=== PATIENT | male | born 1950 | race Caucasian/White ===

== ENCOUNTER 2023-05-23 12:06 | Outpatient (RCR) | payer OTHER, SELFPAY | END 2023-05-23 23:59 | disposition home or self-care (01) | LOC: RPT 12:06 | PROVIDERS: ATTENDING PHYSICIAN Specialist; FAMILY PHYSICIAN Internal Medicine | DX: C61 Malignant neoplasm of prostate (principal); Z73.6 Limitation of activities due to disability; R27.8 Other lack of coordination; Z98.890 Other specified postprocedural states; Z90.79 Acquired absence of other genital organ(s) | CPT/HCPCS: 97162; 97530 ==

== ENCOUNTER 2023-05-31 06:13 | Inpatient (IN) | payer OTHER, SELFPAY ==
[2023-05-19 08:50] LABS: Hematocrit 47.8 % (39.0-52.0); Hemoglobin 16.2 g/dL (13.0-18.0); Mean Corp Hgb Conc. 33.9 g/dL (33.0-37.0); Mean Corpuscular Hgb 30.7 pg (27.0-31.0); Mean Corpuscular Volume 90.7 fL (80.0-94.0); Mean Platelet Volume 10.8 fL (7.4-10.4); Platelet Count 215 10^3/uL (130-400); Red Blood Cell Count 5.27 10^6/uL (4.70-6.10); Red Cell Dist. Width 12.4 % (11.5-14.5); White Blood Cell Count 6.7 10^3/uL (4.8-10.8)
[2023-05-19 08:52] LABS: Urine Albumin Negative (Neg - Trace); Urine Bilirubin Negative (Negative); Urine Character Clear (Clear); Urine Color Yellow; Urine Glucose Negative (Negative); Urine Ketone Negative (Negative); Urine Leukocyte Trace (Negative); Urine Nitrite Negative (Negative); Urine Occult Blood Trace (Negative); Urine Specific Gravity 1.015 (<1.030); Urine Urobilinogen Negative (Neg - 1+)
[2023-05-19 09:10] LABS: INR 1.05; PT 13.7 Sec (11.4-14.6)
[2023-05-19 09:11] LABS: APTT 31.2 Sec (23.4-35.0)
[2023-05-19 09:19] LABS: Urine Red Blood Cell 0-2 /HPF (0-2)
[2023-05-19 10:24] LABS: Blood Urea Nitrogen 17 mg/dl (9-20); Calcium 9.4 mg/dl (8.4-10.2); Carbon Dioxide 28 mmol/L (22-30); Chloride 103 mmol/L (98-107); Glucose 92 mg/dl (70-99); Potassium 4.4 mmol/L (3.5-5.1); Sodium 139 mmol/L (135-145); eGFR > 60.00
[2023-05-19 13:46] VITALS: BMI 24.3
[2023-05-31] VITALS (18 sets, daily range): BP systolic 98–124; BP diastolic 59–86; BMI 24.3
[2023-05-31] MEDS: NORMOSOL-R 1000 IV ×3 (06:40→20:45)
[2023-05-31] MEDS: NEBCIN 480 MG/100 ML ENEMA 1 BOTTLE RECTAL (06:51)
--- NOTE | 2023-05-31 09:31 | W.IMMPOSTOP ---
Surgical Immed Post Op Note
-
Primary Surgeon: Trish
Assisting Surgeon: Hema
Pre-op Diagnosis: Prostate cancer
Post-op Diagnosis: Same
Procedure Performed: Radical perineal prostatectomy, bladder neck tubularization
Anesthesia Type: GET
Specimen / Cultures: prostate gland with adnexa, bladder neck and urethral margins for frozen section
Estimated Blood Loss: 125 ml
Complications: None
[2023-05-31 10:04] LABS: Hematocrit 41.4 % (39.0-52.0); Hemoglobin 14.6 g/dL (13.0-18.0)
[2023-05-31] MEDS: DETROL LA 4 MG PO (10:17)
[2023-05-31 10:18] LABS: Blood Urea Nitrogen 14 mg/dl (9-20); Calcium 8.1 mg/dl (8.4-10.2); Carbon Dioxide 26 mmol/L (22-30); Chloride 102 mmol/L (98-107); Estimated Creatinine Clearance 80 ml/min; Glucose 109 mg/dl (70-99); Potassium 4.5 mmol/L (3.5-5.1); Sodium 133 mmol/L (135-145); eGFR > 60.00
[2023-05-31] MEDS: TORADOL 15 MG IV ×3 (10:24→21:11)
[2023-05-31] MEDS: DILAUDID 0.25 MG IV ×2 (10:46→11:52)
[2023-05-31] MEDS: COLACE PO (14:14)
--- NOTE | 2023-05-31 15:17 | PTCARENOTE ---
Received patient from PACU around 1315 via bed in stable condition. Urinary catheter in place draining greenish blue urine. ABD dressing to perineum in place. SCDs and TEDS in place. Patient oriented to room. Call rodrigues in place.
[2023-05-31] MEDS: COLACE 100 MG PO (16:01)
[2023-05-31] MEDS: VITAMIN D3 (cholecalciferol) 50 MCG PO (18:09)
[2023-05-31] MEDS: TYLENOL 650 MG PO (20:45)
[2023-05-31] MEDS: POLYSPORIN/DOUBLE ANTIBIOTIC 1 APPLIC TOPICAL (20:46)
[2023-05-31] MEDS: ZESTRIL 10 MG PO (21:11)
[2023-05-31] MEDS: PRAVACHOL 40 MG PO (21:11)
[2023-06-01 03:25] VITALS: BP 120/74
[2023-06-01] MEDS: TORADOL 15 MG IV ×3 (03:38→17:07)
[2023-06-01 05:07] LABS: Hematocrit 38.7 % (39.0-52.0); Hemoglobin 13.4 g/dL (13.0-18.0); Mean Corp Hgb Conc. 34.6 g/dL (33.0-37.0); Mean Corpuscular Hgb 30.5 pg (27.0-31.0); Mean Platelet Volume 10.8 fL (7.4-10.4); Platelet Count 194 10^3/uL (130-400); Red Cell Dist. Width 12.3 % (11.5-14.5); White Blood Cell Count 13.7 10^3/uL (4.8-10.8)
[2023-06-01 05:45] LABS: Blood Urea Nitrogen 11 mg/dl (9-20); Calcium 8.4 mg/dl (8.4-10.2); Carbon Dioxide 23 mmol/L (22-30); Chloride 101 mmol/L (98-107); Estimated Creatinine Clearance 106 ml/min; Glucose 96 mg/dl (70-99); Potassium 4.6 mmol/L (3.5-5.1); Sodium 131 mmol/L (135-145); eGFR > 60.00
[2023-06-01] MEDS: NORMOSOL-R 1000 IV (06:12)
[2023-06-01 06:27] LABS: Hepatitis C Antibody Negative (Negative)
[2023-06-01 07:45] VITALS: BP 116/62
[2023-06-01] MEDS: SPIRIVA RESPIMAT 2.5 MCG 2 PUFF INH (08:00)
--- NOTE | 2023-06-01 08:33 | W.PN.UPDATE ---
Update Note
Progress Note Update
Stable 1 day s/p radical perineal prostatectomy
Labs good
Afebrile
Tolerating regular diet
Dressing minimally stained as expected
Bagley draining clear urine
---
Plan:
Dressing down and drain out tomorrow
[2023-06-01] MEDS: COLACE 100 MG PO ×3 (09:27→17:07)
[2023-06-01] MEDS: LEVAQUIN 100 IV (09:28)
[2023-06-01] MEDS: POLYSPORIN/DOUBLE ANTIBIOTIC 1 APPLIC TOPICAL ×2 (09:28→20:51)
[2023-06-01] MEDS: ATIVAN 0.5 MG PO (09:28)
[2023-06-01 11:39] VITALS: BP 126/71
--- NOTE | 2023-06-01 12:30 | CM ---
Reviewed the chart notes and spoke with the patient and his at the bedside. The patient resides in a three story home with two steps to enter. The patient reports no DME/VN/SNF in the past. The patient confirmed his pharmacy of choice is
the [facility] [address]. Discussed with the patient area VN agencies. Patient selected VN. Referral sent. CM continues to be available to patient/family and is monitoring medical plan for needs at discharge.
Plan: Discharge to home with VN services when medically stable.
[2023-06-01 14:55] VITALS: BP 131/83
--- NOTE | 2023-06-01 15:25 | VNURNOTE ---
Home Health Liaison met with patient and spouse Aguilar at 1430 to discuss [facility] nurse visits, schedule and homebound status. Patient is agreeable and understands that visits at home will be 2-3 x per week to assess and teach medical management and
catheter care.
[facility] brochure provided with contact information. Patient is aware that [facility] will contact him for start of care in 1-2 days after discharge from .
[facility] referral completed in [facility].
[2023-06-01] MEDS: NORMOSOL-R IV (16:37)
[2023-06-01] MEDS: FLUSH (NSS) 1 FLUSH IV (21:22)
[2023-06-01] MEDS: PRAVACHOL PO (21:37)
[2023-06-01] MEDS: ZESTRIL PO (21:39)
[2023-06-01 23:07] VITALS: BP 133/84
[2023-06-02] MEDS: COLACE PO ×2 (07:35→12:43)
[2023-06-02] MEDS: LEVAQUIN 100 IV (07:37)
[2023-06-02] MEDS: ATIVAN 0.5 MG PO (07:37)
[2023-06-02] MEDS: POLYSPORIN/DOUBLE ANTIBIOTIC 1 APPLIC TOPICAL (07:38)
[2023-06-02] MEDS: PROTONIX 40 MG PO (07:38)
[2023-06-02 08:00] VITALS: BP 113/74
[2023-06-02] MEDS: SPIRIVA RESPIMAT 2.5 MCG 2 PUFF INH (08:05)
--- NOTE | 2023-06-02 09:13 | W.DS.TRANS ---
DC Summary - Contract Attorney
-
Discharge Instructions:
Discharge Diagnosis/Procedures prostate cancer
Diet As tolerated
Activity No strenuous activity
Additional Activity for 10 days
Driving Restrictions No driving for 1 week
Bathing Restrictions shower off after each bowel movement the next
five
Wound Care VN to remove Bagley around 10 AM 08/13/23
Instructions:
Stand-Alone Forms:
Changes to Home Medications: No
Discharge Medications:
DC Medications w/original date entered in [facility]
albuterol sulfate 90 mcg/actuation aerosol inhaler (ProAir HFA) 1 puff inhalation Q4HPRN PRN shortness of breath #8.5 grams 11/20/22
acetaminophen 500 mg tablet 500 mg PO Q6H PRN pain 05/27/23
calcium carbonate 400 mg calcium (1,000 mg) chewable tablet (Tums Ultra) 400 mg PO PRN PRN reflux 05/27/23
cholecalciferol (vitamin D3) 50 mcg (2,000 unit) capsule (Vitamin D3) 50 mcg PO .EVERY OTHER EVENING Supplement 05/27/23
coenzyme Q10 100 mg capsule (Co Q-10) 100 mg PO HS Supplement 05/27/23
esomeprazole magnesium 20 mg capsule,delayed release 20 mg PO .EVERY OTHER DAY Gastrointestinal Issue 05/27/23
famotidine 10 mg tablet (Pepcid AC) 10 mg PO PRN PRN reflux 05/27/23
finasteride 5 mg tablet 5 mg PO DAILY Urinary Issue 05/27/23
ibuprofen 200 mg capsule (Motrin IB) 200 mg PO Q6H PRN pain 05/27/23
lisinopril 10 mg tablet 10 mg PO HS Blood Pressure 05/27/23
loratadine 10 mg capsule (Claritin Liqui-Gel) 10 mg PO DAILY PRN allergies 05/27/23
lorazepam 0.5 mg tablet 0.5 mg PO DAILY anxiety 05/27/23
bybomftauxhl-rkmctoqr-kdnejx tablet (Multivitamin 50 Plus tablet) 1 tab PO DAILY Supplement 05/27/23
pravastatin 40 mg tablet 40 mg PO HS High Cholesterol 05/27/23
tiotropium bromide 2.5 mcg/actuation mist for inhalation (Spiriva Respimat) 2 puff inhalation DAILY Lung/Breathing Issues 05/27/23
vitamin D3 250 mcg (10,000 unit)-vitamin K2 45 mcg capsule 1 cap PO .EVERY OTHER EVENING Supplement 05/27/23
Home Medication Changes
Pending Results: No
--- NOTE | 2023-06-02 09:35 | CM ---
Reviewed the chart notes and spoke with the patient at the bedside. IMM signed and placed on the chart. The patient's spouse will provide transportation home today. CM continues to be available to patient/family and is monitoring medical plan for
needs at discharge.
Plan: Discharge to home with [facility] BEDS AT THE [facility] services.
== END 2023-06-02 13:55 | disposition home health service (06) | DRG 708 ==
LOC: 2 SOUTH 06:13
PROVIDERS: ADMITTING PHYSICIAN Specialist; FAMILY PHYSICIAN Internal Medicine
PROC: 0VT30ZZ Resection of Bilateral Seminal Vesicles, Open Approach (ICD-10-PCS; 2023-05-31)
PROC: 0VT00ZZ Resection of Prostate, Open Approach (ICD-10-PCS; 2023-05-31)
PROC: 0TUD07Z Supplement Urethra with Autologous Tissue Substitute, Open Approach (ICD-10-PCS; 2023-05-31)
DX: C61 Malignant neoplasm of prostate (principal); Z79.82 Long term (current) use of aspirin; I10 Essential (primary) hypertension; J44.9 Chronic obstructive pulmonary disease, unspecified; E78.00 Pure hypercholesterolemia, unspecified; M81.0 Age-related osteoporosis without current pathological fracture; N40.0 Benign prostatic hyperplasia without lower urinary tract symptoms
CPT/HCPCS: 88305; 88309; 88332; 36415; 80048; 81003; 81015; 85014; 85018; 85027; 85610; 85730; 86803; 86850; 86900; 86901; 88331; 93005; 94640; A4648

== ENCOUNTER 2023-06-19 12:17 | Emergency (ER) | payer OTHER, SELFPAY ==
[2023-06-19 12:20] VITALS: BP 142/95
--- NOTE | 2023-06-19 13:09 | ED.GENMED ---
Addendum entered and electronically signed by Ayo Newton PA-C 06/22/23 07:22:
Wound culture demonstrates Enterobacter species. Sensitivities show effectiveness with Bactrim. No change needed
Original Note:
History of Present Illness
General
Chief Complaint: Skin Problem
Time Seen by Provider: 06/19/23 12:49
Travel History
Have you had any contact with someone who has COVID-19?: No
Do you have any symptoms of coronavirus? Fever > 100 degrees, chills, cough, shortness of breath, sore throat, loss of taste or smell, muscle aches, or headache?: No
History of Present Illness
History of Present Illness:
72-year-old male with history of prostate cancer status post prostatectomy on May 30 presents to the emergency department with concern for discharge from the perineal incision site. States he has had minor amount of discharge for the past several
days, has visiting nurse has been monitoring it closely. This morning he noted foul-smelling discharge on his underwear pad. He denies any significant pain to the area. No fevers, chills, sweats. Denies any dysuria or urinary retention symptoms.
He also notes a mildly itchy rash to bilateral lower legs that began 2 days ago, applied topical betamethasone without relief, right leg is worse than the left
Past History
Past History
ED Past Medical History: Asthma, COPD and HTN
ED Past Surgical History: Urological
Social History
Tobacco: Non-smoker
Drug: None
Personal: Partner
Living: with family
Employment: Retired
Family History
Family History: Unable to obtain
Review of Systems
Review of Systems
Allergies reviewed?: Yes
All Other Systems: ROS reviewed and negative except as documented in HPI and ROS
Phy Exam
Physical Exam
Physical Exam:
GEN: Well appearing, NAD, WDWN
HEENT: Oral mucosa moist, no scleral icterus
Cardiac: Regular rate
Lung: No respiratory distress, no tachypnea
: Perineal incision site is well-approximated, the right anterior aspect of the wound has mild dehiscence with central granulation tissue, no malodorous discharge, no other significant erythema or induration is noted
MSK: No gross deformity or injuries
Skin: Good color, no pallor or jaundice. Petechial/scaly rash circumferentially to R lower leg, scant L lower leg lesions. No lesions to palms or soles
Neuro: AO x3, moves all extremities freely
Psych: Calm, cooperative
Course
Orders/Labs/Results
Orders:
Orders
06/19/23 13:18
Complete Blood Count/With Diff Urgent
Comprehensive Metabolic Panel Urgent
Prothrombin Time Urgent
Wound Culture [Wound/Abscess/Other Culture] Urgent
KRZYSZTOF Source: Groin
Specimen Description: Right
Date Specimen was Collected: 06/19/23
Time Specimen was Collected: 13:11
Comment: R anterior perineal incision site
Abnormal Lab Results
06/19/23
13:18
RBC 4.57 L 10^6/uL
(4.70-6.10)
Absolute Monos (auto) 0.7 H 10^3/uL
(0.1-0.6)
Monocytes % 10.5 H %
(1.7-9.3)
Total Protein 6.1 L g/dl
(6.3-8.2)
06/19/23 13:18
06/19/23 13:18
Vital Signs
Initial and Last Documented VS:
Initial Vital Signs
Temp Pulse Resp BP Pulse Ox
98.9 F 101 18 142/95 96
06/19/23 12:20 06/19/23 12:20 06/19/23 12:20 06/19/23 12:20 06/19/23 12:20
Last Documented Vital Signs
Temp Pulse Resp BP Pulse Ox
98.9 F 101 18 125/76 99
06/19/23 12:20 06/19/23 12:20 06/19/23 12:20 06/19/23 13:23 06/19/23 13:45
MDM/Problems Addressed
MDM/Problems Addressed:
Images of the patient's dehisced incision were sent to urology on-call, although it does not look significantly infected they are requesting we start the patient on Bactrim for 5 days. In regards to the rash he has no leukocytosis,
thrombocytopenia, or coagulopathy. There are no lesions on the palms or soles. Will trial topical steroids, recommend he monitor this closely as an outpatient. Do not feel that this represents significant inflammatory response or bacteremia given
the patient's overall well appearance.
*Critical Care Note
Total Time (30-74mins, 75-104mins- exclusive of procedures): Not Applicable
ED Attending Note
-
Portions of this chart may have been created with voice recognition software.� Occasional wrong word or��sound alike� substitutions may have occurred due to the inherent limitations of voice recognition software.
Discharge Plan
Departure
Patient Disposition: Home (Routine Discharge)
Date of Disposition: 06/19/23
Time of Disposition: 14:22
Patient with high blood pressure during this ER visit?: No
Discharge Problem:
Dehiscence of external surgical wound, Petechial rash
Instructions: Skin Rash (DC)
Prescriptions:
New
triamcinolone acetonide 0.5 % cream
1 applic topical BID 7 Days Qty: 15 0RF
sulfamethoxazole-trimethoprim [Bactrim DS] 800-160 mg tablet
1 tab PO BID 5 Days Qty: 10 0RF
No Action
albuterol sulfate [ProAir HFA] 90 mcg/actuation HFA aerosol inhaler
1 puff inhalation Q4HPRN PRN (Reason: shortness of breath) Qty: 8.5 0RF
famotidine [Pepcid AC] 10 mg Tablet
10 mg PO PRN PRN (Reason: reflux)
pravastatin 40 mg Tablet
40 mg PO HS
calcium carbonate [Tums Ultra] 400 mg calcium (1,000 mg) Tablet,Chewable
400 mg PO PRN PRN (Reason: reflux)
lorazepam 0.5 mg Tablet
0.5 mg PO DAILY
lisinopril 10 mg Tablet
10 mg PO HS
finasteride 5 mg Tablet
5 mg PO DAILY
esomeprazole magnesium 20 mg Capsule,Delayed Release(Dr/Ec)
20 mg PO .EVERY OTHER DAY
Multivitamin 50 Plus Tablet
1 tab PO DAILY
coenzyme Q10 [Co Q-10] 100 mg Capsule
100 mg PO HS
cholecalciferol (vitamin D3) [Vitamin D3] 50 mcg (2,000 unit) Capsule
50 mcg PO .EVERY OTHER EVENING
Spiriva Respimat 2.5 mcg/actuation Mist
2 puff INHALATION DAILY
vitamin D3-vitamin K2 250 mcg (10,000 unit)-45 mcg Capsule
1 cap PO .EVERY OTHER EVENING
ibuprofen [Motrin IB] 200 mg Capsule
200 mg PO Q6H PRN (Reason: pain)
acetaminophen 500 mg Tablet
500 mg PO Q6H PRN (Reason: pain)
Claritin Liqui-Gel 10 mg Capsule
10 mg PO DAILY PRN (Reason: allergies)
Referrals:
NONE,* [Family Provider] -
Activity Restrictions/Additional Instructions:
We will start you on antibiotics per request of urology.
Use the topical steroids on the rash and monitor for improvement
Interventions
Interventions:
*Risk Screen - Suicide Last Done: 06/19/23 12:54
*General Assessment Last Done: 06/19/23 13:19
*Neglect/Abuse Screening Last Done: 06/19/23 12:54
ED- Fall Risk Assessment Last Done: 06/19/23 13:19
*ED COVID-19 Vaccine History Last Done: 06/19/23 12:53
*Nursing Disposition Last Done: 06/19/23 14:30
ED-Skin Assessment Last Done: 06/19/23 13:19
Discharge Date and Time
Discharge Date/Time: 06/19/23 14:32
[2023-06-19 13:19] VITALS: BMI 23.8
[2023-06-19 13:23] VITALS: BP 125/76
[2023-06-19 13:31] LABS: % Basophils 0.6 % (0-2); % Eosinophils 3.9 % (0-6); % Immature Granulocytes 0.5 % (0-0.5); % Lymphocytes 30.5 % (20.5-51.1); % Monocytes 10.5 % (1.7-9.3); Absolute Eosinophils 0.3 10^3/uL (0-0.7); Absolute Lymphocytes 1.9 10^3/uL (1.2-3.4); Absolute Monocytes 0.7 10^3/uL (0.1-0.6); Absolute Neutrophils 3.4 10^3/uL (1.4-6.5); Hematocrit 41.1 % (39.0-52.0); Hemoglobin 13.9 g/dL (13.0-18.0); Mean Corp Hgb Conc. 33.8 g/dL (33.0-37.0); Mean Corpuscular Hgb 30.4 pg (27.0-31.0); Mean Corpuscular Volume 89.9 fL (80.0-94.0); Mean Platelet Volume 9.9 fL (7.4-10.4); Nucleated Red Blood Cells % 0 % (-); Platelet Count 275 10^3/uL (130-400); Red Blood Cell Count 4.57 10^6/uL (4.70-6.10); Red Cell Dist. Width 13.2 % (11.5-14.5); White Blood Cell Count 6.4 10^3/uL (4.8-10.8)
[2023-06-19 13:42] LABS: INR 1.07; PT 13.8 Sec (11.4-14.6)
[2023-06-19 13:48] LABS: ALT (SGPT) 15 U/L (0-50); AST (SGOT) 26 U/L (17-59); Albumin 3.8 g/dl (3.5-5.0); Alkaline Phosphatase 65 U/L (38-126); Blood Urea Nitrogen 18 mg/dl (9-20); Calcium 9.5 mg/dl (8.4-10.2); Carbon Dioxide 27 mmol/L (22-30); Chloride 106 mmol/L (98-107); Estimated Creatinine Clearance 90 ml/min; Glucose 87 mg/dl (70-99); Potassium 4.7 mmol/L (3.5-5.1); Sodium 135 mmol/L (135-145); Total Bilirubin 0.5 mg/dl (0.2-1.3); Total Protein 6.1 g/dl (6.3-8.2); eGFR > 60.00
== END 2023-06-19 14:32 | disposition home or self-care (01) ==
LOC: EMR 12:17
PROVIDERS: Physician Assistant; EMERGENCY PHYSICIAN Emergency Medicine
DX: T81.31XA Disruption of external operation (surgical) wound, not elsewhere classified, initial encounter (principal); R23.3 Spontaneous ecchymoses; Y83.8 Other surgical procedures as the cause of abnormal reaction of the patient, or of later complication, without mention of misadventure at the time of the procedure; C61 Malignant neoplasm of prostate; I10 Essential (primary) hypertension; J45.909 Unspecified asthma, uncomplicated; Z91.048 Other nonmedicinal substance allergy status; Z90.79 Acquired absence of other genital organ(s)
CPT/HCPCS: 99283; 80053; 85025; 85610; 87070; 87077; 87186; 87205

== ENCOUNTER 2023-08-17 12:37 | Emergency (ER) | payer OTHER, SELFPAY ==
[2023-08-17 12:42] VITALS: BP 129/85
--- NOTE | 2023-08-17 13:24 | ED.GENMED ---
History of Present Illness
<Taryn Sanches PA-C - Last Filed: 08/17/23 18:59>
General
Chief Complaint: Skin Problem
Source: patient
Exam Limitations: none
Time Seen by Provider: 08/17/23 13:00
Nursing documentation reviewed up to this point in time: agreed with
Travel History
Have you had any contact with someone who has COVID-19?: No
Do you have any symptoms of coronavirus? Fever > 100 degrees, chills, cough, shortness of breath, sore throat, loss of taste or smell, muscle aches, or headache?: No
History of Present Illness
History of Present Illness:
Patient is a 73-year-old male with history hypertension, hyperlipidemia, prostate cancer presenting for evaluation of bump on left forehead. Patient states he initially noticed lump about 4 to 5 months ago but at that point it was much smaller and
skin colored. At that time it was seen by bankruptcy judge who believes it to be a small cyst but no indication for treatment at the time. Patient states that over the past 1 to 2 weeks the growth has become larger, more red and mildly tender to the
touch. Patient was able to schedule a bankruptcy judge follow-up for this coming Tuesday but given mild worsening in symptoms every day he became concerned prompting the visit to the emergency department today.
Patient denies any fever, chills, headache. Patient denies any visual changes, chest pain, shortness of breath. Patient denies any drainage from growth.
Past History
<Taryn Sanches PA-C - Last Filed: 08/17/23 18:59>
Past History
ED Past Medical History: Asthma, COPD and HTN
ED Past Surgical History: Urological
Social History
Tobacco: Non-smoker
Drug: None
Personal: Partner
Living: with family
Employment: Retired
Family History
Family History: Unable to obtain
Review of Systems
<Taryn Sanches PA-C - Last Filed: 08/17/23 18:59>
Review of Systems
Allergies reviewed?: Yes
All Other Systems: ROS reviewed and negative except as documented in HPI and ROS
Phy Exam
<Taryn Sanchse PA-C - Last Filed: 08/17/23 18:59>
Physical Exam
Physical Exam:
Vitals: Patient's vital signs are stable. Afebrile
General: Patient is well appearing, no acute distress
Skin: Warm and dry, no rashes or lesions
Head: Normocephalic, atraumatic. Small 1 to 2 cm somewhat firm but mobile subcutaneous nodule on the left lateral forehead with mild overlying erythema and warmth. No fluctuance or drainage noted. Mass not pulsatile. No tenderness overlying
temporal artery.
Eyes: Sclera nonicteric. EOMs intact. No nystagmus.
Throat: Protecting airway
Neck: Normal ROM, no cervical spine tenderness, no meningismus
Cardiac: Regular rate and rhythm, no murmurs.
Pulm: Normal respiratory effort, no wheezes, rales, rhonchi heard on exam.
Abdomen: No abdominal tenderness.
Extremities: No evidence of cyanosis or edema
Neuro: AAOx3. CN II-XII intact. No focal neurologic deficits.
Psychiatric: Normal affect.
Course
<Taryn Sanches PA-C - Last Filed: 08/17/23 18:59>
Orders/Labs/Results
Orders:
Orders
08/17/23 13:32
Cephalexin Monohydrate [Keflex] 500 mg PO NOW STA
Vital Signs
Initial and Last Documented VS:
Initial Vital Signs
Pulse Resp BP Pulse Ox
80 18 129/85 98
08/17/23 12:42 08/17/23 12:42 08/17/23 12:42 08/17/23 12:42
Last Documented Vital Signs
Pulse Resp BP Pulse Ox
80 18 129/85 98
08/17/23 12:42 08/17/23 12:42 08/17/23 12:42 08/17/23 12:42
<Neo Baires MD - Last Filed: 08/17/23 13:40>
Orders/Labs/Results
Orders:
Orders
08/17/23 13:32
Cephalexin Monohydrate [Keflex] 500 mg PO NOW STA
Vital Signs
Initial and Last Documented VS:
Initial Vital Signs
Pulse Resp BP Pulse Ox
80 18 129/85 98
08/17/23 12:42 08/17/23 12:42 08/17/23 12:42 08/17/23 12:42
Last Documented Vital Signs
Pulse Resp BP Pulse Ox
80 18 129/85 98
08/17/23 12:42 08/17/23 12:42 08/17/23 12:42 08/17/23 12:42
<Taryn Sanches PA-C - Last Filed: 08/17/23 18:59>
MDM/Problems Addressed
Differential Diagnosis Includes:
Not limited to: Epidermoid cyst, sebaceous cyst, abscess, [place] cell carcinoma, squamous cell carcinoma
MDM/Problems Addressed:
73-year-old male presenting for evaluation of chronic lump on left forehead with recent increase in size and pain. No fever, chills, or systemic symptoms of infection. Patient does have follow-up with dermatology on Tuesday. Patient's vital signs
are stable. He is afebrile. Exam as above. There is a small subcutaneous lump on his left lateral forehead that is mildly tender and erythematous. Mass is somewhat firm, but mobile. No significant surrounding swelling, erythema, red streaking
or evidence for overlying cellulitis. There is no evidence of systemic infection. I believe this to be slightly inflamed epidermal cyst. Offered patient incision/drainage/aspiration versus antibiotic therapy. Patient prefers oral antibiotics and
will follow-up with dermatology on Tuesday. I feel this is a very reasonable plan. Patient given first dose of Keflex when emergency department. Prescription sent to pharmacy. Return precautions discussed with patient. He will follow-up with
dermatology on Tuesday. Stable for discharge.
Chronic conditions affecting care:
N/A
Acute Exacerbation and/or Progression of Chronic Illness:
N/A
<Taryn Sanches PA-C - Last Filed: 08/17/23 18:59>
*Pulse Oximetry
Patient hypoxic: no
*EKG
Interpreted by ED Provider?: NA
*Parking Ramp Attendant Interpretation
Rate: Parking Ramp Attendant- N/A
*Critical Care Note
Total Time (30-74mins, 75-104mins- exclusive of procedures): Not Applicable
ED Attending Note
<Taryn Sanches PA-C - Last Filed: 08/17/23 18:59>
-
Portions of this chart may have been created with voice recognition software.� Occasional wrong word or��sound alike� substitutions may have occurred due to the inherent limitations of voice recognition software.
<Neo Baires MD - Last Filed: 08/17/23 13:40>
ED Attending Note
Patient seen and examined by attending physician: Yes
ED Attending Note:
I have seen and evaluated the patient with a [id number] encounter. I have spoken to the advance practicer provider and involved in the medical history, the physical exam, medical decision making.
Evaluation and management service: agree unless noted differently below.
Results interpretation: agree unless noted differently below.
Focused HPI: 73-year-old male with history as documented presents to the emergency room for evaluation of bump on the left forehead. Patient says that he has had a bump on his left forehead for about 6 months. He says that he saw his primary
doctor and was referred to dermatology for evaluation of it. He was told that it was likely a cyst. He says that over the past week and a half he noticed that it has gotten more red and painful. He scheduled a follow-up appoint with a
bankruptcy judge to have it reassessed which is scheduled for this coming Tuesday but he was concerned that it could be something more emergent and so he came to the emergency room to be assessed. He has not had any fevers or chills. No drainage or
discharge. No other symptoms.
Physical exam: Awake alert, not in distress. Vital signs normal. He has a small well-circumscribed subcutaneous mass which is somewhat firm and mobile in the left temporal region. It is not pulsatile. It is mildly tender to the touch and warm.
No pustules or wounds, no crepitus.
Medical Decision Makin-year-old male presents for evaluation of redness of his been a chronic bump on the left side of his forehead. Scheduled to see dermatology for it on Tuesday but came to the emergency room to be assessed to ensure nothing
emergent. Could be a small lipoma with overlying cellulitis or infected sebaceous cyst. Offered attempt at I&D here versus oral antibiotics and follow-up with dermatology as scheduled on Tuesday for reassessment�he prefers to trial oral
antibiotics and defer any incision/procedure to dermatology. I think that is a reasonable plan. Spoke about return precautions and all questions answered.
Discharge Plan
Departure
Patient Disposition: Home (Routine Discharge)
Date of Disposition: 08/17/23
Time of Disposition: 13:24
Patient with high blood pressure during this ER visit?: No
Condition: Good
Covid-19: Not Applicable
Discharge Problem:
Inflamed epidermoid cyst of skin
Instructions: Epidermal Cyst (DC)
Prescriptions:
New
cephalexin 500 mg capsule
500 mg PO QID 7 Days Qty: 28 0RF
No Action
albuterol sulfate [ProAir HFA] 90 mcg/actuation HFA aerosol inhaler
1 puff inhalation Q4HPRN PRN (Reason: shortness of breath) Qty: 8.5 0RF
famotidine [Pepcid AC] 10 mg Tablet
10 mg PO PRN PRN (Reason: reflux)
pravastatin 40 mg Tablet
40 mg PO HS
calcium carbonate [Tums Ultra] 400 mg calcium (1,000 mg) Tablet,Chewable
400 mg PO PRN PRN (Reason: reflux)
lorazepam 0.5 mg Tablet
0.5 mg PO DAILY
lisinopril 10 mg Tablet
10 mg PO HS
finasteride 5 mg Tablet
5 mg PO DAILY
esomeprazole magnesium 20 mg Capsule,Delayed Release(Dr/Ec)
20 mg PO .EVERY OTHER DAY
Multivitamin 50 Plus Tablet
1 tab PO DAILY
coenzyme Q10 [Co Q-10] 100 mg Capsule
100 mg PO HS
cholecalciferol (vitamin D3) [Vitamin D3] 50 mcg (2,000 unit) Capsule
50 mcg PO .EVERY OTHER EVENING
Spiriva Respimat 2.5 mcg/actuation Mist
2 puff INHALATION DAILY
vitamin D3-vitamin K2 250 mcg (10,000 unit)-45 mcg Capsule
1 cap PO .EVERY OTHER EVENING
ibuprofen [Motrin IB] 200 mg Capsule
200 mg PO Q6H PRN (Reason: pain)
acetaminophen 500 mg Tablet
500 mg PO Q6H PRN (Reason: pain)
Claritin Liqui-Gel 10 mg Capsule
10 mg PO DAILY PRN (Reason: allergies)
triamcinolone acetonide 0.5 % cream
1 applic topical BID 7 Days Qty: 15 0RF
sulfamethoxazole-trimethoprim [Bactrim DS] 800-160 mg tablet
1 tab PO BID 5 Days Qty: 10 0RF
Activity Restrictions/Additional Instructions:
-Return to the emergency department with any high fevers, severe pain, worsening swelling or redness, pus draining from wound, nausea/vomiting, worsening in current symptoms, or any other concerns
-Prescription for antibiotic has been sent to your pharmacy. You should take this 4 times a day for the next week. You can apply warm compress to the area.
-You can take Tylenol as needed for any discomfort.
-As discussed�you should follow-up with your bankruptcy judge next week with scheduled appointment. Do not hesitate to return to the emergency department with any acute worsening or change in symptoms.
Interventions
Interventions:
*Risk Screen - Suicide Last Done: 08/17/23 12:42
*General Assessment Last Done: 08/17/23 12:42
*Neglect/Abuse Screening Last Done: 08/17/23 12:42
*ED COVID-19 Vaccine History Last Done: 08/17/23 12:42
Discharge Date and Time
Print Language: BOLIVIAN
[2023-08-17] MEDS: KEFLEX 500 MG PO (14:04)
== END 2023-08-17 14:05 | disposition home or self-care (01) ==
LOC: EMR 12:37
PROVIDERS: EMERGENCY PHYSICIAN Emergency Medicine; FAMILY PHYSICIAN Internal Medicine
DX: L72.8 Other follicular cysts of the skin and subcutaneous tissue (principal); I10 Essential (primary) hypertension; E78.5 Hyperlipidemia, unspecified; K21.9 Gastro-esophageal reflux disease without esophagitis; M81.0 Age-related osteoporosis without current pathological fracture; Z85.46 Personal history of malignant neoplasm of prostate; Z90.79 Acquired absence of other genital organ(s); J44.89 Other specified chronic obstructive pulmonary disease; Z91.048 Other nonmedicinal substance allergy status
CPT/HCPCS: 99283

== ENCOUNTER → 2023-11-23 08:04 | Outpatient (REF) | payer OTHER, SELFPAY | LOC: RAD 08:04 | PROVIDERS: ATTENDING PHYSICIAN Internal Medicine | DX: M81.0 Age-related osteoporosis without current pathological fracture (principal) | CPT/HCPCS: 77080 ==

== ENCOUNTER → 2024-03-05 06:17 | Day surgery (SDC) | payer OTHER, SELFPAY | LOC: GI 06:17 | PROVIDERS: ATTENDING PHYSICIAN Internal Medicine Gastroenterology | DX: K22.89 Other specified disease of esophagus (principal); K44.9 Diaphragmatic hernia without obstruction or gangrene | CPT/HCPCS: 43239; 88305 ==